=== PATIENT | male | born 1985 | race American Indian/Alaskan Native ===

== ENCOUNTER 2019-03-14 17:06 | Emergency (ER) | payer SELFPAY ==
[2019-03-14] MEDS ORDERED: NORCO 7.5/325 PO ONE (17:18)
--- NOTE | 2019-03-14 17:18 | Event Note ---
ED Screening Note Date of service: 03/14/19 Time: 17:15 ED Screening Note: 33 y/o male comes in for left index finger laceration after cutting bushes with a hedge clipper about [employer]. Need tetanus. This initial assessment/diagnostic orders/clinical plan/treatment(s) is/are subject to change based on patients health status, clinical progression and re- assessment by fellow clinical providers in the ED. Further treatment and workup at subsequent clinical providers discretion. Patient/guardian urged not to elope from the ED as their condition may be serious if not clinically assessed and managed. Initial orders include:
[2019-03-14] MEDS ORDERED: NORCO 7.5/325 ONE (17:19)
--- NOTE | 2019-03-14 18:13 | XRay Report ---
Left index finger 3 views 1731 INDICATION: Laceration to distal finger Prominent artifact is caused by a large bandage over the distal portion of the index finger. No obvio us fracture or dislocation is identified. Signer Name: Alexis Miller MD Signed: 03/14/2019 6:08 PM Workstation Name: [id number]
[2019-03-14] MEDS ORDERED: BOOSTRIX IM ONE (19:07)
[2019-03-14] MEDS ORDERED: TORADOL IM ONE (19:26)
[2019-03-14] MEDS ORDERED: XYLOCAINE 1% MPF 5 mL INFILTRATI ONE (19:26)
[2019-03-14] MEDS ORDERED: ZOFRAN ODT PO ONE (19:26)
[2019-03-14] MEDS ORDERED: PERCOCET 5/325 PO ONE (19:26)
[2019-03-14] MEDS ORDERED: TRIPLE ANTIBIOTIC TP ONE (20:46)
[2019-03-14] MEDS ORDERED: ANCEF IM ONE (20:55)
--- NOTE | 2019-03-14 21:01 | Emergency Department Report ---
ED Upper Extremity Inj HPI - General Chief Complaint: Extremity Injury, Upper Stated Complaint: FINGER LAC Time Seen by Provider: 03/14/19 19:25 Source: patient Mode of arrival: Ambulatory Limitations: No Limitations - History of Present Illness Initial Comments: Patient is a 33-year-old -[place] male with no past medical history presents to the ED with complaint of severely painful bleeding distal left index finger laceration after he accidentally ran a mophead trimmer and wrapper on the left index finger for 2 hours ago. Patient states that the bleeding has been persistent since the injury occurred. The patient admits to not being fully vaccinated with tetanus. Patient admits numbness, weakness or tingling of the left hand and left index finger. Patient denies nausea, vomiting, dizziness, shortness of breath or left-hand weakness. MD Complaint: Injury to:: left, finger (distal index left finger laceration) -: Sudden, hour(s) (2) Other Extremity Injury: Hand: Left (distal left index finger laceration) Other Injuries: none Handedness: right Place: home Severity scale (0 -10): 4 Improves With: none Worsens With: movement of extremity (Left index finger laceration) Associated Symptoms: denies other symptoms. denies: weakness, numbness, neck pain, suspects foreign body, nausea/vomiting, heard/felt popping sensat - Related Data Previous Rx's Medication Instructions Recorded Last Taken Type Acetaminophen/Codeine [Tylenol 1 tab PO Q6H PRN #12 tab 03/14/19 Unknown Rx /Codeine # 3 tab] Ibuprofen [Motrin] 800 mg PO Q8HR PRN #20 tablet 03/14/19 Unknown Rx cephALEXin [Keflex] 500 mg PO Q6HR #40 capsule 03/14/19 Unknown Rx Allergies Allergy/AdvReac Type Severity Reaction Status Date / Time No Known Allergies Allergy Unverified 03/14/19 17:10 ED Review of Systems ROS: Stated complaint: FINGER LAC Other details as noted in HPI Constitutional: denies: chills, fever Eyes: denies: eye pain, eye discharge, vision change ENT: denies: ear pain, throat pain Respiratory: denies: cough, shortness of breath, wheezing Cardiovascular: denies: chest pain, palpitations Endocrine: no symptoms reported Gastrointestinal: denies: abdominal pain, nausea, diarrhea Genitourinary: denies: urgency, dysuria Musculoskeletal: arthralgia (painful bleeding distal left index finger laceration). denies: back pain, joint swelling Skin: other (left index finger bleeding laceration). denies: rash, lesions Neurological: denies: headache, weakness, paresthesias Psychiatric: denies: anxiety, depression Hematological/Lymphatic: denies: easy bleeding, easy bruising ED Past Medical Hx - Past Medical History Previous Medical History?: No - Surgical History Past Surgical History?: No - Social History Smoking Status: Never Smoker Substance Use Type: Marijuana - Medications Home Medications: Home Medications Medication Instructions Recorded Confirmed Last Taken Type Acetaminophen/Codeine [Tylenol 1 tab PO Q6H PRN #12 tab 03/14/19 Unknown Rx /Codeine # 3 tab] Ibuprofen [Motrin] 800 mg PO Q8HR PRN #20 tablet 03/14/19 Unknown Rx cephALEXin [Keflex] 500 mg PO Q6HR #40 capsule 03/14/19 Unknown Rx ED Physical Exam - General Limitations: No Limitations General appearance: alert, in no apparent distress - Head Head exam: Present: atraumatic, normocephalic, normal inspection - Eye Eye exam: Present: normal appearance, PERRL, EOMI. Absent: scleral icterus, conjunctival injection Pupils: Present: normal accommodation - ENT ENT exam: Present: normal exam, normal orophraynx, mucous membranes moist, TM's normal bilaterally, normal external ear exam - Neck Neck exam: Present: normal inspection, full ROM. Absent: tenderness, lymphadenopathy - Respiratory Respiratory exam: Present: normal lung sounds bilaterally. Absent: respiratory distress, wheezes, rales, rhonchi, chest wall tenderness, accessory muscle use, decreased breath sounds, prolonged expiratory - Cardiovascular Cardiovascular Exam: Present: regular rate, normal rhythm, normal heart sounds. Absent: systolic murmur, diastolic murmur, rubs, gallop - GI/Abdominal GI/Abdominal exam: Present: soft, normal bowel sounds. Absent: tenderness, guarding, rebound, hyperactive bowel sounds, hypoactive bowel sounds - Rectal Rectal exam: Present: deferred - Extremities Exam Extremities exam: Present: normal inspection, full ROM, tenderness (Distal left index finger tenderness due to a bleeding 3 cm laceration), normal capillary refill. Absent: joint swelling, calf tenderness - Back Exam Back exam: Present: normal inspection, full ROM. Absent: tenderness, CVA tenderness (R), CVA tenderness (L), muscle spasm, paraspinal tenderness, vertebral tenderness - Neurological Exam Neurological exam: Present: alert, oriented X3, CN II-XII intact, normal gait, reflexes normal - Psychiatric Psychiatric exam: Present: normal affect, normal mood - Skin Skin exam: Present: warm, dry, intact, normal color, other (Bleeding severely tender distal left index finger 3 cm laceration). Absent: rash ED Course Vital Signs 03/14/19 03/14/19 03/14/19 17:18 17:20 19:40 Temperature 98.1 F Pulse Rate 59 L Respiratory 50 H 18 16 Rate Blood Pressure 119/42 O2 Sat by Pulse 98 Oximetry 03/14/19 19:45 Temperature Pulse Rate Respiratory 16 Rate Blood Pressure O2 Sat by Pulse Oximetry - Reevaluation(s) Reevaluation #1: 03/14/19 21:10 Patient is alert and oriented 3 and has not been distressed by pain. Patient was treated for pain, also received tetanus vaccination in the ED. Left index finger x-ray shows no acute fractures or dislocations. The left index finger laceration was cleaned thoroughly and debrided, and a local anesthetic, lidocaine 1% solution used as a digital block to create a local anesthetic effect. When the left index finger anesthesia was fully achieved, the laceration was sutured appropriately. After Neosporin ointment was applied to the wound. The patient tolerated the procedure well. Patient's left index finger was dressed appropriately after the procedure. Patient was also treated in the ED with Ancef 1 g intramuscular injection. Patient is discharged home on prophylactic antibiotic and pain medications, and advised to follow-up with his primary care physician in 7-10 days for reevaluation. Patient was also less return to the ED immediately if symptoms get worse. Patient was also advised to return to the ED for suture removal in 12-14 days. - Laceration /Wound Repair Left Palm Finger Wound Location: upper extremity (Distal left index finger laceration) Irrigated w/ Saline (ccs): 50 Betadine Prep?: Yes Anesthesia: 1% Lidocaine Volume Anesthetic (ccs): 5 Wound Debrided: extensive Wound Repaired With: sutures Suture Size/Type: 4:0, proline Number of Sutures: 15 Layer Closure?: No Sterile Dressing Applied?: Yes Progress: Patient tolerated procedure well. ED Medical Decision Making - Radiology Data Radiology results: report reviewed, image reviewed Left index finger x-ray: No acute fractures or subluxations - Medical Decision Making Patient is alert and oriented 3 and has not been distressed by pain. Patient was treated for pain, also received tetanus vaccination in the ED. Left index finger x-ray shows no acute fractures or dislocations. The left index finger laceration was cleaned thoroughly and debrided, and a local anesthetic, lidocaine 1% solution used as a digital block to create a local anesthetic effect. When the left index finger anesthesia was fully achieved, the lacer ation was sutured appropriately. After Neosporin ointment was applied to the wound. The patient tolerated the procedure well. Patient's left index finger was dressed appropriately after the procedure. Patient was also treated in the ED with Ancef 1 g intramuscular injection. Patient is discharged home on prophylactic antibiotic and pain medications, and advised to follow-up with his primary care physician in 7-10 days for reevaluation. Patient was also less return to the ED immediately if symptoms get worse. Patient was also advised to return to the ED for suture removal in 12-14 days. - Differential Diagnosis Left index finger laceration; Left tindex finger facture; Critical care attestation.: If time is entered above; I have spent that time in minutes in the direct care of this critically ill patient, excluding procedure time. ED Disposition Clinical Impression: Laceration of left index finger w/o foreign body w/o damage to nail Qualifiers: Encounter type: initial encounter Qualified Code(s): S61.211A - Laceration without foreign body of left index finger without damage to nail, initial encounter Disposition: - TO HOME OR SELFCARE Is pt being admited?: No Does the pt Need Aspirin: No Condition: Stable Instructions: Laceration (ED), Finger Laceration (ED) Additional Instructions: TAKE MEDICATIONS WITH FOOD, DRINK PLENTY OF FLUIDS AND FOLLOW UP WITH YOUR PRIMARY CARE PHYSICIAN IN 7-10 DAYS FOR REEVALUATION. RETURN TO THE ED IMMEDIATELY IF SYMPTOMS GET WORSE. OTHERWISE RETURN TO THE ED IN 14 DAYS FOR SUTURE REMOVAL. Prescriptions: cephALEXin [Keflex] 500 mg PO Q6HR #40 capsule Ibuprofen [Motrin] 800 mg PO Q8HR PRN #20 tablet PRN Reason: Pain , Severe (7-10) Acetaminophen/Codeine [Tylenol /Codeine # 3 tab] 1 tab PO Q6H PRN #12 tab PRN Reason: Pain , Severe (7-10) Referrals: [facility] [Outside] - 3-5 Days Forms: Work/School Release Form(ED) Time of Disposition: 21:02 Print Language: KHMER
[2019-03-14 21:46] VITALS: BP 119/62
== END 2019-03-14 21:30 | disposition home or self-care (01) ==
LOC: ED 17:06
DX: S61.211A Laceration without foreign body of left index finger without damage to nail, initial encounter (principal); W27.8XXA Contact with other nonpowered hand tool, initial encounter; Y93.89 Activity, other specified; Y92.89 Other specified places as the place of occurrence of the external cause; Y99.8 Other external cause status
CPT/HCPCS: 12002; 73140; 90471; 90715; 96372; 99283; J0690; J1885; A6250; Q0162